=== PATIENT | female | born 1975 | race Caucasian/White ===

== ENCOUNTER → 2016-10-26 | Outpatient (CLI) | payer OTHER | END | disposition short-term general hospital (02) | LOC: CLPAIN 10:53 | DX: M47.897 Other spondylosis, lumbosacral region (principal); M46.1 Sacroiliitis, not elsewhere classified; F11.20 Opioid dependence, uncomplicated | CPT/HCPCS: G0477 ==

== ENCOUNTER → 2016-11-23 | Outpatient (CLI) | payer OTHER | END | disposition short-term general hospital (02) | LOC: CLPAIN 12:12 | DX: M47.897 Other spondylosis, lumbosacral region (principal); M46.1 Sacroiliitis, not elsewhere classified; F11.20 Opioid dependence, uncomplicated ==